=== PATIENT | female | born 1985 | race Caucasian/White ===

== ENCOUNTER 2016-10-02 00:36 | Emergency (ER) | payer SELFPAY ==
[~2016-10-02] VITALS: Ht 170.2 cm; Wt 116.0 kg
[~2016-10-02 00:36] MED LIST: ADVIL200 MG PO; LO-OVRAL-281 EACH PO; MOBIC7.5 MG PO; NORCO 5/3251 TABLET PO; PREVACID30 MG PO; PRILOSEC20 MG PO; ZANTAC150 MG PO; ZOCOR20 MG PO
[2016-10-02 01:09] LABS: HEMATOCRIT 38.2 % (36.0-46.0); MCH 30.7 PG (29.0-34.0); MCHC 34.6 G/DL (30.0-36.0); MCV 88.8 FL (83-99); MEAN PLAT.VOLUME 8.9 uM^3 (9.5-12.4); PLATELET COUNT 288 K/uL (156-360); RBC DIS.WIDTH-CV 12.1 % (11.8-14.6); RBC DIS.WIDTH-SD 38.6 % (39-53); WHITE BLOOD COUNT 9.8 K/uL (4.1-10.2)
[2016-10-02 01:23] LABS: CHLORIDE 107 mEq/L (99-109); POTASSIUM 3.7 mEq/L (3.7-5.4); SODIUM 141 mEq/L (136-147)
[2016-10-02 01:25] LABS: GLUCOSE 102 mg/dL (70-99)
[2016-10-02 01:26] LABS: ANION GAP 12 MEQ/L (2-14)
[2016-10-02 01:29] LABS: GFR ESTIMATE (CALCULATED) > 59 mL/min/
[2016-10-02 01:30] LABS: UREA NITROGEN (BUN) 15 mg/dL (9-23)
[2016-10-02 01:32] LABS: TROP-I INTERPRETATION NEGATIVE; TROPONIN-I < 0.01 ng/mL (0.0-0.30)
[2016-10-02 01:44] LABS: D-DIMER ELISA 0.18 mg/L FEU (< 0.57)
[2016-10-02] MEDS ORDERED: ATIVAN0.5 MG PO (02:25)
[2016-10-02 02:39] VITALS: BP 102/60
== END 2016-10-02 02:40 | disposition home or self-care (01) ==
LOC: EME 00:36
PROVIDERS: Emergency Medicine
DX: R00.2 Palpitations (principal); R42 Dizziness and giddiness; Z87.891 Personal history of nicotine dependence
CPT/HCPCS: 71020; 80048; 83880; 84484; 85027; 85379; 93005; 99281; 99284